=== PATIENT | male | born 1970 | race Caucasian/White ===

== ENCOUNTER 2019-07-03 13:23 | Inpatient (IN) | payer OTHER ==
[~2019-07-03] VITALS: Ht 185.4 cm; Wt 86.4 kg
--- NOTE | 2019-07-03 13:56 | PHYS DOC ---
Past History Past Medical History: Depression, DVT, GERD Past Surgical History Surgical intervention of prior DVT in Right LE approximately 4 years ago. Smoking: Non-smoker Alcohol Use: None Drug Use: None Adult General Chief Complaint Chief Complaint: LOWER EXTREMITY SWELLING HPI HPI Patient is a 49 year old incarcerated male presents from local correctional facility with right lower extremity swelling. Associated pain in right posterior calf and right groin. Also experiencing associated muscle spasms some of which awake patient from sleep. Symptoms started over 1 month ago and have been gradually worsening. Pain is described as sharp and is exacerbated by walking. Severity is 7/10 at rest and 9/10 at its worst typically while walking. Is currently taking Tylenol and Mobic for pain relief which is minimally helping. Patient reports these symptoms have happened once before approximately 4 years ago in which an extensive clot was found and required surgical intervention. Patient was sent by medical staff at facility for outpatient US of extremity. US with results positive for acute DVT. Denies chest pain or SOA. Denies pleuritic pain. Denies fever/chills. Review of Systems Review of Systems Constitutional: Denies fever or chills. Eyes: Denies redness or eye pain HENT: Reports nasal congestion; denies sore throat Respiratory: Denies shortness of breath; reports cough. Cardiovascular: Denies chest pain or palpitations GI: Denies abdominal pain, nausea, or vomiting : Denies dysuria or hematuria Musculoskeletal: Denies back pain; reports right leg pain Integument: Denies rash or skin lesions Neurologic: Denies headache, focal weakness or sensory changes Complete systems were reviewed and found to be within normal limits, except as documented in this note. Current Medications Current Medications Current Medications Medications (Trade) Dose Ordered Sig/Jean Pierre Start Time Stop Time Status Last Admin Dose Admin Info (Do NOT chart on this entry -- for MONITORING) 1 each PRN DAILY PRN 07/03/19 14:00 07/05/19 13:59 Iohexol (Omnipaque 350 Mg/ml) 100 ml 1X ONCE 07/03/19 14:30 07/03/19 14:31 Allergies Allergies Allergies Coded Allergies Type Severity Reaction Last Updated Verified haloperidol Allergy Unknown 07/03/19 Yes Physical Exam Physical Exam Constitutional: Well developed, well nourished, no acute distress, non-toxic appearance HENT: Normocephalic, atraumatic, oropharynx moist Eyes: EOMI, conjunctiva normal, no discharge Cardiovascular: Heart rate normal, regular rhythm, Lungs & Thorax: Bilateral breath sounds clear to auscultation, no wheezing Skin: Warm, dry, no erythema, no rash, healed scar from ulcer in area of right medial malleolus. Back: No tenderness, no CVA tenderness Extremities: ROM intact, Grade 1+ edema noted on dorsal aspect of right foot.Tenderness to palpation on posterior aspect of right leg in calf region. Tenderness to palpation in right groin region. Neurologic: Alert and oriented X 3, normal motor function, normal sensory function, no focal deficits noted Psychologic: Affect normal, judgment normal Current Patient Data Vital Signs at 14:15, Pulse: 66 bpm. SpO2: 100 on room air. BP: 121/68. EKG EKG At 14:02 normal sinus rhythm at [address] elevation. [] Radiology/Procedures Radiology/Procedures PROCEDURE: CT ANGIOGRAPHY CHEST CT ANGIOGRAPHY CHEST Indication: Pain. DVT . Technique: After intravenous contrast administration, CT imaging was performed of the chest. MIP reconstructions were obtained. Exposure: One or more of the following individualized dose reduction techniques were utilized for this examination: 1. Automated exposure control 2. Adjustment of the mA and/or kV according to patient size 3. Use of iterative reconstruction technique. Comparison: None FINDINGS: No evidence of pulmonary embolism. The aorta is nonaneurysmal, and there is no evidence of aortic dissection. Proximal great vessels appear patent. Visualized thyroid demonstrates no dominant mass. No evidence of pathologic lymph node enlargement. No evidence of pericardial effusion. No significant pleural effusion. No significant esophageal distention. No evidence of concerning pulmonary mass. No evidence of consolidating infiltrate. No pneumothorax. Trachea and mainstem bronchi are patent. The body height and alignment are intact with mild degenerative change. Scans through the upper abdomen are limited by technique but no definite acute abnormality. IMPRESSION: No evidence of pulmonary embolism or other acute abnormality. Electronically signed by: Rocael Cisneros MD (07/03/2019 2:42 PM) [id number] PROCEDURE: VENOUS LOWER EXTREMITY RIGHT Right lower extremity venous duplex study 07/03/2019 Clinical History: Right leg pain. Technique: Using a combination of real time ultrasound imaging and color-flow and pulse Doppler imaging techniques along with graded compression and augmentation, duplex evaluation of the deep venous system of the right lower extremity was performed. Multiple images were obtained. Findings: Echogenic thrombus consistent with DVT is seen extending from the right posterior tibial vein to involve the right popliteal, superficial femoral and right common femoral vein. This is largely occlusive. The right greater saphenous vein is occluded. IMPRESSION: Extensive DVT is seen involving the right leg as discussed above. Electronically signed by: Eliel Mercado MD (07/03/2019 12:55 PM) [facility] Course & Med Decision Making Course & Med Decision Making Pertinent Labs and Imaging studies reviewed. (See chart for details) Patient presented with acute diagnosis of extensive DVT made via outpatient US taken at [facility] 12:55 pm on 07/03/19. Patient presented with mild swelling of Right LE associated with significant pain in right posterior leg and right groin. Symptoms of swelling and pain have been going on for over 1 month. Pain mostly while walking on stairs and cramps that awaken patient from sleep. Patient is incarcerated. Discussed with Dr. Solorio (institutional physician) who reports unable to obtain Xarelto and felt better to have patient admitted for bridging to Coumadin as that is the medication they are able to use. Patient was not exhibiting signs/symptoms of PE at this time. Lovenox was started in ED and patient was sent for CT angio to confirm absence of PE. Patient will be admitted for further treatment. CTA chest negative for acute PE. Pain addressed. Patient requiring admission for further evaluation and treatment. Discussed with Dr. Acosta (hospitalist) who is in agreement with admission. Discussed findings and plan with patient, who acknowledges understanding and agreement. Dragon Disclaimer Dragon Disclaimer This electronic medical record was generated, in whole or in part, using a voice recognition dictation system. Departure Departure: Impression: Primary Impression: Acute deep vein thrombosis (DVT) of right lower extremity Disposition: ADMITTED INPATIENT Admitting Physician: Jay Acosta Condition: GUARDED Referrals: ISHAAN SOLORIO DO (PCP) Critical Care Time Critical care time was 30 minutes which includes time at bedside, spent in discussion of patient's care with specialists and/or family members, with in terpretation of laboratory and/or radiological studies and is exclusive of procedures. Problem Qualifiers Primary Impression: Acute deep vein thrombosis (DVT) of right lower extremity Affected thrombotic vein of extremity: unspecified vein of extremity Qualified Codes: I82.401 - Acute embolism and thrombosis of unspecified deep veins of right lower extremity ROCAEL NUNEZ DO Jul 03, 2019 13:56
[2019-07-03] MEDS ORDERED: CONTRAST GIVEN MC PRN (14:00)
[2019-07-03] MEDS ORDERED: IV NORMAL SALINE 1,000ML 1,000 ML IV ONE (14:00)
[2019-07-03 14:30] LABS: BASO # 0.1 x10^3/uL (0.0-0.2); BASO % 1 % (0-3); EOS # 0.5 x10^3/uL (0.0-0.7); EOS % 8 % (0-3); HEMATOCRIT 36.9 % (39.0-53.0); HEMOGLOBIN 12.3 g/dL (13.0-17.5); LYMPH # 1.1 x10^3/uL (1.0-4.8); LYMPH % 16 % (24-48); MEAN CORPUSCULAR HEMOGLOBIN 29 pg (25-35); MEAN CORPUSCULAR HGB CONC 33 g/dL (31-37); MEAN CORPUSCULAR VOLUME 87 fL (79-100); MONO # 0.5 x10^3/uL (0.0-1.1); MONO % 7 % (0-9); NEUT # 4.4 x10^3uL (1.8-7.7); NEUT % 68 % (31-73); PLATELET COUNT 306 x10^3/uL (140-400); RED BLOOD COUNT 4.26 x10^6/uL (4.30-5.70); RED CELL DISTRIBUTION WIDTH 14.8 % (11.5-14.5); WHITE BLOOD COUNT 6.5 x10^3/uL (4.0-11.0)
[2019-07-03] MEDS ORDERED: IOHEXOL 350 MG/ML 100 ML VIAL. IV ONE (14:30)
[2019-07-03] MEDS ORDERED: ENOXAPARIN ** NOTE DOSE ** SYRINGE SQ ONE (14:30)
[2019-07-03] MEDS ORDERED: IV NORMAL SALINE 1,000ML 1,000 ML IV SCH (14:30)
[2019-07-03 14:41] LABS: ANION GAP 7 (6-14); BLOOD UREA NITROGEN 14 mg/dL (8-26); BUN/CREATININE RATIO 14 (6-20); CALCIUM 8.6 mg/dL (8.5-10.1); CARBON DIOXIDE 28 mmol/L (21-32); CHLORIDE 108 mmol/L (98-107); GFR 78.8; GLUCOSE 98 mg/dL (70-99); POTASSIUM 4.1 mmol/L (3.5-5.1); SODIUM 143 mmol/L (136-145)
--- NOTE | 2019-07-03 14:45 | RAD ---
CT ANGIOGRAPHY CHEST Indication: Pain. DVT . Technique: After intravenous contrast administration, CT imaging was performed of the chest. MIP reconstructions were obtained. Exposure: One or more of the following individualized dose reduction techniques were utilized for this examination: 1. Automated exposure control 2. Adjustment of the mA and/or kV according to patient size 3. Use of iterative reconstruction technique. Comparison: None FINDINGS: No evidence of pulmonary embolism. The aorta is nonaneurysmal, and there is no evidence of aortic dissection. Proximal great vessels appear patent. Visualized thyroid demonstrates no dominant mass. No evidence of pathologic lymph node enlargement. No evidence of pericardial effusion. No significant pleural effusion. No significant esophageal distention. No evidence of concerning pulmonary mass. No evidence of consolidating infiltrate. No pneumothorax. Trachea and mainstem bronchi are patent. The body height and alignment are intact with mild degenerative change. Scans through the upper abdomen are limited by technique but no definite acute abnormality. IMPRESSION: No evidence of pulmonary embolism or other acute abnormality. Electronically signed by: Rocael Cisneros MD (07/03/2019 2:42 PM) [id number]
[2019-07-03 14:57] LABS: ALBUMIN 3.4 g/dL (3.4-5.0); ALBUMIN/GLOBULIN RATIO 1.1 (1.0-1.7); ALK PHOS 72 U/L (46-116); ALT (SGPT) 27 U/L (16-63); AST (SGOT) 22 U/L (15-37); TOTAL BILIRUBIN 0.4 mg/dL (0.2-1.0); TOTAL PROTEIN 6.5 g/dL (6.4-8.2)
[2019-07-03 16:39] VITALS: BP 133/86
[2019-07-03] MEDS ORDERED: DIVA250T PO (16:57)
[2019-07-03] MEDS ORDERED: CETI10TA24 PO (16:57)
[2019-07-03] MEDS ORDERED: PANT40TA3 PO (16:57)
[2019-07-03] MEDS ORDERED: ACET325T9 PO (16:57)
--- NOTE | 2019-07-03 17:13 | HP ---
ADMIT DATE: 07/03/2019 HISTORY OF PRESENT ILLNESS: The patient is a 49-year-old male patient, an inmate at [facility], who presented to the Emergency Room complaining of pain in his right lower extremity with swelling. The pain is mostly in the right posterior calf and the right groin. He also has some muscle spasm, some of which awakes patient from sleep. His symptoms started about a month ago and have been gradually worsening. Pain is described as sharp and exacerbated by walking. He rated about 7/10 in severity at rest and 9/10 at its worst, typically while walking. He is on Tylenol and Mobic for pain relief and that are minimally helping. The patient report that these symptoms happened before approximately 4 years ago, in which he had an extensive clot was found in and required surgical intervention. He was sent by the medical staff at the facility for outpatient ultrasound of his right lower extremity, which was positive for acute DVT; however, the patient himself denied any chest pain. He does have cough, but denied any phlegm or hemoptysis. He was basically started on Lovenox and a decision was made to admit him to start him on Coumadin. PAST MEDICAL HISTORY: Significant for varicose veins and venous stasis ulcer that was treated surgically in the medial aspect of the right lower extremity. He is known to have gastroesophageal reflux disease, generalized osteoarthritis, depression. PAST SURGICAL HISTORY: Significant for varicose vein stripping and ablation, cholecystectomy. He apparently also attempted to commit suicide by cutting himself in the neck and sustained laceration that required suturing 2 weeks ago. ALLERGIES: He is allergic to HALDOL. MEDICATIONS: He is currently on following medications: He is on Depakote 125 mg by mouth twice a day, meloxicam 7.5 mg twice a day, Protonix 40 mg once a day, Tylenol 650 mg every 4 hours and Zyrtec 10 mg once a day. He is also on tolnaftate as well as bacitracin analgesic cream. FAMILY HISTORY: He has one sister who is older and alive. His father is , but does not know about him. His mother is still alive at age of 82, has multiple medical problems, but he does not know the nature of it. SOCIAL HISTORY: He is single, never , has no children. Quit smoking 22 years ago. Does not drink alcohol. He did experiment with marijuana a long time ago. He never worked. He said that he had inherited from his father. REVIEW OF SYSTEMS: The patient denied any blurring of vision, cataract, glaucoma or macular degeneration. Denied any earache, tinnitus or sensorineural deafness. Denied any nosebleeds, stuffy nose. He did have postnasal drip. Denied any sore throat, sore tongue, toothache, hoarseness of voice or difficulty swallowing. Denied any nausea, vomiting, diarrhea or constipation. Denied any hematemesis, melena or hematochezia. Denied any dysuria, frequency or hematuria. Denied any nausea, vomiting, diarrhea or constipation. Denied any hematemesis, melena or hematochezia. Denied any dysuria, frequency or hematuria. Denied any chest pain, shortness of breath. Did complain of cough. Denied any dizziness, lightheadedness or vertigo. Denied any phlegm or hemoptysis. PHYSICAL EXAMINATION: GENERAL: On arrival to the Emergency Room, he looked well and was clearly in no apparent respiratory distress. No pallor, jaundice, cyanosis or thyromegaly. No jugular venous distention. No lower limb edema. VITAL SIGNS: Her heart rate was 58, blood pressure was 126/68, temperature was 98.2, respiratory rate was 20 and his oxygen saturation was 99% on room air. HEAD, EYES, EARS, NOSE AND THROAT: Showed normocephalic, atraumatic. NECK: Supple. HEART: Showed normal first and second heart sounds. No gallop, rub or murmur. CHEST: Clear to auscultation. No crepitation or rhonchi. ABDOMEN: Distended. No guarding or rigidity. No organomegaly. All hernial orifices intact. Bowel sounds normal. NEUROLOGIC: He was awake, alert, responding appropriately. All cranial nerves intact. EXTREMITIES: He moves extremities without difficulty, ambulates without assistance or assistive devices. Examination of both lower extremities showed he has chronic venous hypertension with venous stasis ulcer that has healed. He has prominent varicose veins in both lower extremities with marked hyperpigmentation of the lower half of both legs and feet. LABORATORY DATA: Showed a white cell count of 6500, hemoglobin 12.3, hematocrit 36, MCV 87 and platelet count of 306,000. Serum sodium was 143, potassium 4.1, chloride 108, bicarbonate 28, anion gap of 7, BUN 14, creatinine 1, estimated GFR was 78 mL per minute. His glucose was 98, calcium was 8.6, magnesium 2. Total bilirubin, AST, ALT, alkaline phosphatase were normal. His CK was 82, total protein was 6.5, albumin was 3.4. His prothrombin time was 10.6, INR 1, aPTT was 33. He apparently had had a Doppler ultrasound, which basically showed that he has extensive DVT seen involving the right leg. He has an echogenic thrombus consistent with DVT is seen extending from the right posterior tibial vein to involve the right popliteal and superficial femoral and right common femoral vein. This is largely occlusive. The right greater saphenous vein is occluded. He did have a CT angio of the chest, which basically showed no evidence of pulmonary embolism. The aorta is non-aneurysmal and there is no evidence of aortic dissection. Proximal great vessels appear patent. Visualized thyroid demonstrates no dominant mass, no evidence of pathologic lymph node enlargement. No evidence of pericardial effusion. No significant pleural effusion. No significant dysphagia distension. No evidence of concerning pulmonary mass. No evidence of consolidating infiltrate. No pneumothorax. Trachea and main stem bronchus are patent. The body height and alignment are intact with mild degenerative changes. Scan of the upper abdomen are limited by technique, but no definite acute abnormality. ASSESSMENT AND PLAN: The patient was treated with Lovenox. We will continue with Lovenox 1 mg per kilogram twice a day. We will start him also on Coumadin. We will check his PT/INR on a daily basis and we will discontinue Lovenox once the INR is 2-2.5. MORENO GARCIA MD DR: LOVE/kirby JOB#: [id number] / [id number]
--- NOTE | 2019-07-03 17:54 | EKG ---
[address] [address] Test Date: 2019-07-03 Test Time: 14:02:20 Pat Name: RODY LOZA Department: Room: Gender: M [employer] Supervisor: : [id number] Requested By: DEYSI NUNEZ Order Number: [id number] Reading MD: Measurements Intervals [place] Rate: 66 P: 41 AR: 148 QRS: 50 QRSD: 86 T: 27 QT: 368 QTc: 387 Interpretive Statements SINUS RHYTHM LEFT ATRIAL ABNORMALITY QRS(T) CONTOUR ABNORMALITY CONSISTENT WITH ANTEROSEPTAL INFARCT PROBABLY OLD ABNORMAL ECG RI6.01 No previous ECG available for comparison
[2019-07-03] MEDS ORDERED: WARFARIN 7.5 MG TABLET. PO ONE (18:00)
[2019-07-03 19:42] VITALS: BP 108/72
[2019-07-03] MEDS: DIVALPROEX SODIUM 125 MG TABLET.DR. PO SCH (22:18)
[2019-07-03] MEDS: ENOXAPARIN ** NOTE DOSE ** SYRINGE SQ SCH (22:18)
[2019-07-03 22:40] VITALS: BP 124/80
[2019-07-04] MEDS: ACETAMINOPHEN 325 MG TABLET PO PRN (03:36)
[2019-07-04 05:23] VITALS: BP 97/56
[2019-07-04] MEDS: PANTOPRAZOLE 40 MG TABLET. PO SCH (08:09)
[2019-07-04] MEDS: CETIRIZINE HCL 10 MG TABLET PO SCH (08:09)
[2019-07-04] MEDS: ENOXAPARIN ** NOTE DOSE ** SYRINGE SQ SCH ×2 (08:10→22:15)
[2019-07-04] MEDS: DIVALPROEX SODIUM 125 MG TABLET.DR. PO SCH ×3 (08:43→22:15)
[2019-07-04 10:56] VITALS: BP 99/62
[2019-07-04 15:14] VITALS: BP 107/70
[2019-07-04] MEDS ORDERED: WARFARIN 7.5 MG TABLET. PO ONE (16:00)
--- NOTE | 2019-07-04 18:31 | PN ---
DATE: 07/04/2019 SUBJECTIVE: The patient is resting, slightly propped up in bed, in no apparent respiratory distress. He is awake, alert, complaining of pain in his right knee joint and treated with pain medication and felt much improved. He denied any cough, phlegm or hemoptysis. He obviously continued to be on Lovenox 90 mg subcutaneously twice a day and Coumadin 7.5 mg once a day. When I examined him, he looked well and was clearly in no apparent respiratory distress. No pallor, jaundice, cyanosis or thyromegaly. No jugular venous distention of edema. The rest of clinical exam is stable. His intake and output were incompletely recorded. His prothrombin time this morning was 11, INR 1.1. ASSESSMENT: Right lower extremity deep vein thrombosis. Other medical problems include gastroesophageal reflux disease. He has also chronic venous stasis and venous stasis ulcer on the medial aspect of the right lower extremity, generalized osteoarthritis, and depression. PLAN: To continue with Lovenox. Continue with Coumadin. Monitor his prothrombin time and discontinue Lovenox once INR is equal to more than 2. MORENO GARCIA MD DR: LOVE/kirby JOB#: [id number] / [id number]
[2019-07-04 19:36] VITALS: BP 101/64
[2019-07-04 23:01] VITALS: BP 109/71
[2019-07-05 05:52] VITALS: BP 108/67
[2019-07-05 06:38] LABS: HEMOGLOBIN 12.4 g/dL (13.0-17.5); RED BLOOD COUNT 4.36 x10^6/uL (4.30-5.70); RED CELL DISTRIBUTION WIDTH 15.5 % (11.5-14.5); WHITE BLOOD COUNT 6.2 x10^3/uL (4.0-11.0)
[2019-07-05 06:53] LABS: ALBUMIN 2.8 g/dL (3.4-5.0); ALBUMIN/GLOBULIN RATIO 0.8 (1.0-1.7); GFR 78.8; TOTAL BILIRUBIN 0.2 mg/dL (0.2-1.0); TOTAL PROTEIN 6.1 g/dL (6.4-8.2)
[2019-07-05] MEDS: CETIRIZINE HCL 10 MG TABLET PO SCH (08:58)
[2019-07-05] MEDS: PANTOPRAZOLE 40 MG TABLET. PO SCH (08:58)
[2019-07-05] MEDS: ENOXAPARIN ** NOTE DOSE ** SYRINGE SQ SCH ×2 (08:58→20:59)
[2019-07-05 11:05] VITALS: BP 108/70
--- NOTE | 2019-07-05 15:03 | PN ---
DATE: 07/05/2019 SUBJECTIVE: The patient is resting, slightly propped up in bed, in no apparent respiratory distress. He is awake, alert, complaining of pain in his calf muscle and also his thigh. His prothrombin time and INR continued to be subtherapeutic. His prothrombin time was 11.4, INR 1.1. PHYSICAL EXAMINATION: GENERAL: When I examined him, he looked pale, without jaundice, cyanosis or thyromegaly. No jugular venous distention. No limb edema. VITAL SIGNS: His heart rate was 70, blood pressure was 108/70, temperature was 98.4, respiratory rate was 16, and oxygen saturation was 94%. The rest of clinical exam is stable, has not really changed. LABORATORY DATA: His white cell count was 6200, hemoglobin 12, hematocrit 38, MCV 87, and platelet count 279,000. His serum sodium was 144, potassium 4, chloride 109, bicarbonate 26, anion gap of 9, BUN 11, creatinine 1, estimated GFR was 79 mL per minute. His glucose was 108, calcium was 8. Total bilirubin, AST, ALT, alkaline phosphatase were normal. Total protein was 6.1, albumin was 2.8. Prothrombin time was 11.4, INR 1.1. ASSESSMENT: 1. Right lower extremity deep vein thrombosis for which he continues to be on an overlap of Coumadin and Lovenox. His INR still continues to be supratherapeutic. 2. Gastroesophageal reflux disease. 3. Chronic venous ulcer on the medial aspect of the right lower extremity. 4. Generalized osteoarthritis. 5. Depression. PLAN: Continue with Lovenox and Coumadin. Discontinue Lovenox once the INR is 2 or more. MORENO GARCIA MD DR: LOVE/kirby JOB#: [id number] / [id number]
[2019-07-05 15:15] VITALS: BP 114/75
[2019-07-05] MEDS ORDERED: WARFARIN 10 MG TABLET. PO ONE (16:00)
[2019-07-05] MEDS ORDERED: WARFARIN 7.5 MG TABLET. PO ONE (16:00)
[2019-07-05] MEDS: DIVALPROEX SODIUM 125 MG TABLET.DR. PO SCH ×2 (17:34→20:59)
[2019-07-05 20:14] VITALS: BP 110/71
[2019-07-05 22:42] VITALS: BP 112/71
[2019-07-06] MEDS: PANTOPRAZOLE 40 MG TABLET. PO SCH (07:30)
[2019-07-06] MEDS: ENOXAPARIN ** NOTE DOSE ** SYRINGE SQ SCH ×2 (09:00→20:56)
[2019-07-06] MEDS: CETIRIZINE HCL 10 MG TABLET PO SCH (09:00)
[2019-07-06 11:00] VITALS: BP 110/72
[2019-07-06 15:25] VITALS: BP 115/75
[2019-07-06] MEDS ORDERED: WARFARIN 10 MG TABLET. PO ONE (16:00)
[2019-07-06] MEDS: DIVALPROEX SODIUM 125 MG TABLET.DR. PO SCH ×2 (18:11→20:55)
[2019-07-06 19:45] VITALS: BP 107/71
[2019-07-06] MEDS: DOCUSATE SODIUM 100 MG CAPSULE PO SCH (20:55)
--- NOTE | 2019-07-07 03:28 | PN ---
DATE: SUBJECTIVE: The patient is resting, slightly propped up in bed, in no apparent distress. He is awake, alert. On questioning him, he denied any complaint. His pain is much better controlled. The nursing staff said that he has not required any pain medication throughout the day. PHYSICAL EXAMINATION: GENERAL: On examining him, he looked pale, not jaundiced, cyanosis or thyromegaly. No jugular venous distension. No lower limb edema. VITAL SIGNS: His heart rate was 77, blood pressure was 110/72, temperature was 98.2, respiratory rate 20, and oxygen saturation was 95%. The rest of clinical exam is stable. LABORATORY DATA: His lab work as of yesterday showed a white cell count 6200, hemoglobin 12, hematocrit 38, MCV 87 and platelet count 279,000. His chemistry showed a BUN of 11, creatinine 1. His prothrombin this morning was 12.4, INR 1.2. ASSESSMENT: 1. Right lower extremity deep vein thrombosis, for which he continues to be on overlap of Coumadin and Lovenox. His INR continued to be supratherapeutic. 2. Gastroesophageal reflux disease. 3. Chronic venous ulcers on the medial aspect of the right lower extremity. 4. Generalized osteoarthritis. 5. Depression. PLAN: Continue with Coumadin. Continue with Lovenox. We will discontinue Lovenox once the INR is 2 or more than Dictation Ends Here. MORENO GARCIA MD DR: LOVE/kirby JOB#: [id number] / [id number]
[2019-07-07 06:10] VITALS: BP 102/67
[2019-07-07] MEDS: PANTOPRAZOLE 40 MG TABLET. PO SCH (07:44)
[2019-07-07] MEDS: ACETAMINOPHEN 325 MG TABLET PO PRN (07:45)
[2019-07-07] MEDS: ENOXAPARIN ** NOTE DOSE ** SYRINGE SQ SCH ×2 (07:45→19:58)
[2019-07-07] MEDS: DOCUSATE SODIUM 100 MG CAPSULE PO SCH ×2 (07:45→19:58)
[2019-07-07] MEDS: CETIRIZINE HCL 10 MG TABLET PO SCH (07:45)
[2019-07-07] MEDS ORDERED: HYDROcodone/APAP 5/325MG 1 TAB TABLET PO PRN (11:30)
[2019-07-07 11:43] VITALS: BP 104/68
[2019-07-07 15:58] VITALS: BP 112/79
[2019-07-07] MEDS ORDERED: WARFARIN 10 MG TABLET. PO ONE (16:00)
[2019-07-07] MEDS: DIVALPROEX SODIUM 125 MG TABLET.DR. PO SCH ×2 (17:26→19:58)
[2019-07-07 19:20] VITALS: BP 98/68
--- NOTE | 2019-07-07 22:15 | PN ---
DATE: 07/07/2019 SUBJECTIVE: The patient is resting, slightly propped up in bed, in no apparent respiratory distress. Awake, alert, continued to complain of pain in his right lower extremity. PHYSICAL EXAMINATION: GENERAL: On examining him, he looked well and was clearly in no apparent distress. VITAL SIGNS: His heart rate was 63, blood pressure was 102/67, temperature 98, respiratory rate 16, and oxygen saturation was 94%. The rest of clinical exam is stable. LABORATORY DATA: His prothrombin time this morning was 15.7, INR 1.5. ASSESSMENT: 1. Right lower extremity deep vein thrombosis, which he continues to be an overlap of Coumadin and Lovenox. INR continued to be subtherapeutic at 1.5. 2. Gastroesophageal reflux disease. 3. Chronic venous ulcers on the medial aspect of the right lower extremity. 4. Generalized osteoarthritis. 5. Depression. PLAN: To continue with dobutamine. I will discontinue fentanyl, start him on hydrocodone. If the INR is 2 or more than 2, tomorrow he can be discharged back to his ____. MORENO GARCIA MD DR: LOVE/kirby JOB#: [id number] / [id number]
[2019-07-08 06:20] VITALS: BP 113/68
[2019-07-08] MEDS: DOCUSATE SODIUM 100 MG CAPSULE PO SCH (08:50)
[2019-07-08] MEDS: CETIRIZINE HCL 10 MG TABLET PO SCH (08:50)
[2019-07-08] MEDS: PANTOPRAZOLE 40 MG TABLET. PO SCH (08:50)
[2019-07-08] MEDS: ENOXAPARIN ** NOTE DOSE ** SYRINGE SQ SCH (08:51)
[2019-07-08] MEDS ORDERED: WARFARIN 7.5 MG TABLET. PO ONE (09:30)
[2019-07-08] MEDS ORDERED: WARFARIN 10 MG TABLET. PO ONE (16:00)
--- NOTE | 2019-07-08 17:31 | DS ---
DATE OF DISCHARGE: 07/08/2019 ATTENDING PHYSICIAN: Dr. Acosta. FINAL DISCHARGE DIAGNOSES: 1. Acute deep venous thrombosis, right leg. 2. History of superficial vein therapy. 3. Idiopathic seizure disorder. 4. Chronic pain syndrome. 5. The patient is currently incarcerated at the [facility]. HISTORY AND PHYSICAL: This 49-year-old inmate at [facility], was admitted with increasing swelling of the right leg, associated pain in the right posterior calf and muscle spasm. Symptoms started several weeks earlier. He has had a previous clot 4 years before, which required surgical intervention. Ultrasound of venous system was positive for acute DVT. He was admitted for further treatment and evaluation facility, at which he is incarcerated and has had no access to Eliquis or Xarelto; therefore, he is admitted with heparin and Coumadin therapy. PHYSICAL EXAMINATION: Please see the dictated note. PERTINENT LABORATORY AND X-RAY STUDIES: Hemoglobin was maintained at 12.4 mg/dL. White count was 6200. Chemistry panel was unremarkable. INR is ordered daily. It started at 1.1, 1.2, 1.5 and prior to discharge is at 1.7. He had been on Coumadin therapy for 5 days here in the hospital as well as injectable Lovenox. COURSE IN THE HOSPITAL: The patient was admitted with documented DVT of the right leg. He had no pulmonary symptoms. Diet was advanced. He received initial Lovenox along with daily dose of Coumadin 10 mg daily for 4 days. On the sixth hospital day, his swelling was improved, pain was managed and was ready for discharge. He is close enough to therapeutic range. I recommended 7.5 mg orally prior to discharge today, 5 mg Coumadin daily, thereafter for a total of 6 months with subsequent INR; hopefully, the next one can be done within a week. The patient was then discharged from our hospital in stable condition to the custody of the 2 long term guards that were attending to him. SHARI SHARMA MD DR: ALECIA/kirby JOB#: [id number] / [id number] MORENO Fung MD
== END 2019-07-08 12:22 | disposition home or self-care (01) | DRG 301 ==
LOC: ER 13:25 → 1 SOUTH 14:00 → EEVIPCON 14:00
PROVIDERS: ADMIT Internal Medicine; ATTEND Internal Medicine
DX: I82.401 Acute embolism and thrombosis of unspecified deep veins of right lower extremity (principal); K21.9 Gastro-esophageal reflux disease without esophagitis; F32.9 Major depressive disorder, single episode, unspecified; M15.9 Polyosteoarthritis, unspecified; G40.909 Epilepsy, unspecified, not intractable, without status epilepticus; G89.4 Chronic pain syndrome; I87.8 Other specified disorders of veins; I83.015 Varicose veins of right lower extremity with ulcer other part of foot; Z79.01 Long term (current) use of anticoagulants; Z87.891 Personal history of nicotine dependence; Z90.49 Acquired absence of other specified parts of digestive tract; Z88.8 Allergy status to other drugs, medicaments and biological substances
CPT/HCPCS: 36415; 71275; 80053; 82553; 83735; 84484; 85025; 85027; 85610; 85730; 93005; 96361; 96372; 96374; J1650; J3010; Q9967; 99291-25; J7030

== ENCOUNTER → 2019-07-03 | Outpatient (CLI) | payer OTHER ==
[~2019-07-03] MED LIST: ACET325T9 PO; CETI10TA24 PO; DIVA250T PO; PANT40TA3 PO
--- NOTE | 2019-07-03 12:58 | RAD ---
Right lower extremity venous duplex study 07/03/2019 Clinical History: Right leg pain. Technique: Using a combination of real time ultrasound imaging and color-flow and pulse Doppler imaging techniques along with graded compression and augmentation, duplex evaluation of the deep venous system of the right lower extremity was performed. Multiple images were obtained. Findings: Echogenic thrombus consistent with DVT is seen extending from the right posterior tibial vein to involve the right popliteal, superficial femoral and right common femoral vein. This is largely occlusive. The right greater saphenous vein is occluded. IMPRESSION: Extensive DVT is seen involving the right leg as discussed above. Electronically signed by: Eliel Mecrado MD (07/03/2019 12:55 PM) [facility]
== END | disposition home or self-care (01) ==
LOC: EEVIPCON 12:13 → US 12:13
DX: I82.441 Acute embolism and thrombosis of right tibial vein (principal); I82.431 Acute embolism and thrombosis of right popliteal vein
CPT/HCPCS: 93971